=== PATIENT | male | born 1985 | race Caucasian/White ===

== ENCOUNTER 2019-05-17 06:54 | Emergency (ER) | payer SELFPAY ==
[2019-05-17 07:02] VITALS: BP 150/98; PULSE 93; RESP 18; TEMP 36.7; O2SAT 100; BMI 22.4
--- NOTE | 2019-05-17 07:07 | ED_ITS ---
Entered by Connor Kwon, acting as scribe for May 17, 2019 06:54 HPI - Dental/Oral General: Chief complaint: Dental/Oral Stated complaint: oral pain Time Seen by Provider: 05/17/19 07:01 History of Present Illness: HPI Narrative: 34 yo male presents with dental pain. Pt states that he woke up with a swollen jaw and pain. Patient has been using [id number] dental wax as to pack it he has some swelling on the left side of his jaw. No fever no nausea vomiting or diarrhea. No difficulty swallowing or speaking no difficulty with breathing Associated symptoms: Denies fever(s) Review of Systems Const: Denies: fever, chills, body aches, fatigue, malaise or night sweats Eyes: Denies: change in vision or blurry vision ENMT: Reports: oral sores/lesions and dental pain; Denies: throat pain, nasal discharge or nasal congestion Card: Denies: chest pain, palpitations, irregular heart rhythm, edema, syncope, shortness of breath on exertion, shortness of breath when lying down or leg pain with exertion Resp: Denies: shortness of breath, productive cough, non-productive cough or wheezing GI: Denies: abdominal pain, nausea, vomiting, vomiting blood, coffee grounds in vomit, difficulty swallowing, heartburn/indigestion, diarrhea, constipation, cramping, blood in stool or black tarry stool : Denies: flank pain, difficulty urinating, painful urination, urinary frequency, urinary urgency, urinary incontinence or blood in urine Musc: Denies: neck pain, back pain, extremity pain, extremity swelling, joint pain or joint swelling Skin/Breast: Denies: rash, itching or redness Neuro: Denies: headache, numbness in extremities, weakness in extremities, changes in sensation, lack of coordination, difficulty walking, frequent falls, dizziness, vertigo or confusion Psych: Denies: anxiety, depression, loss of interest, visual hallucinations, auditory hallucinations, suicidal ideation or homicidal ideation Endo: Denies: excessive urination, excessive thirst, tired all the time or cold intolerance Levar/Lymph: Denies: easy bruising, easy bleeding, petechiae, enlarged lymph nodes or tender lymph nodes PFS ED PFSH: Medical History (Updated 05/17/19 @ 07:15 by Kevin Steward DO) Anxiety reaction Depression Gastroesophageal reflux Seizure Social History Smoking and tobacco status: current every day smoker Physical Exam Const: COMMON NORMALS: average body habitus, oriented x3 and alert GENERAL APPEARANCE: cooperative, comfortable, well kempt and well developed NUTRITIO NAL APPEARANCE: obese ORIENTATION/CONSCIOUSNESS: Yes awake, Yes oriented to person and Yes oriented to place HENMT: COMMON NORMALS: normocephalic, head/scalp atraumatic, EAC's normal, TM's normal bilaterally, external nose normal, moist oral mucous membranes and oropharynx normal HEAD & SCALP: normocephalic and atraumatic NOSE: external nose normal EXTERNAL AUDITORY CANAL: EAC's normal TYMPANIC MEMBRANE: TM's normal bilaterally MOUTH: oral and palatal mucosa normal, lip normal and tongue normal THROAT: tonsils normal OTHER: Posterior mandibular molar is eroded there is wax in the cavity pit there is moderate swelling that is tender to touch along the mandible in that same region there is no evidence of submandibular swelling fullness induration no cervical lymphadenopathy noted Eye: COMMON NORMALS: PERRL, EOMs intact bilaterally, conjunctivae normal and no scleral icterus CONJUNCTIVA: Yes conjunctivae normal PUPIL: Yes PERRL Neck/C-Spine: COMMON NORMALS: full ROM, no lymphadenopathy, supple, no meni ngeal signs and thyroid normal THYROID: thyroid normal and asymmetrical Lymph: LYMPHATIC: no lymphadenopathy noted Resp: COMMON NORMALS: normal respiratory effort, no retractions, no use of accessory muscles and clear to auscultation bilaterally AUSCULTATION: clear to auscultation bilaterally Cardio: COMMON NORMALS: regular rate and regular rhythm RATE: regular rate RHYTHM: regular rhythm HEART SOUNDS: no murmurs GI: COMMON NORMALS: normal to inspection, nondistended, normoactive bowel sounds, soft to palpation and no hepatosplenomegaly PALPATION: Yes soft and Yes no hepatosplenomegaly : COMMON NORMALS: Yes no CVA tenderness BLADDER/KIDNEY EXAM: Yes no CVA tenderness Back/Pelvis: COMMON NORMALS: no CVA tenderness LUMBAR SPINE/LOWER BACK: Yes normal to inspection Extremity: COMMON NORMALS: no clubbing, cyanosis or edema, no calf tenderness and no pedal edema Neuro: COMMON NORMALS: oriented x3 SENSORIUM/ORIENTATION: Yes alert, Yes oriented to person and Yes oriented to place MENINGEAL SIGNS: Yes no meningeal signs Psych: APPEARANCE: Yes well kempt Skin: COMMON NORMALS: no rashes or lesions noted and skin turgor normal GENERAL SKIN EXAM: no rashes or lesions noted and turgor normal Course Vital Signs: Vital signs: Vital Signs Temperature 98.0 F 05/17/19 07:02 Pulse Rate 93 05/17/19 07:02 Respiratory Rate 16 05/17/19 07:08 Blood Pressure 150/98 05/17/19 07:02 Pulse Oximetry 100 05/17/19 07:02 MDM - Dental/Oral MDM Narrative: Medical decision making narrative: Unfortunately community is under the detention in place order and he will not be able to get into see his dentist likely in the next 2 weeks. We will put him on 10 days of Augmentin also given pain medications return to the emergency room if he has further problems strongly encouraged him to contact his dentist to see if they are able to do an emergency procedure soon. Discharge Plan Discharge Patient Disposition: Home, Self-Care Clinical Impression: Dental abscess, Dental caries Condition: Stable Prescriptions: New hydrocodone-acetaminophen 5-325 mg tablet 1 tab PO Q6H PRN (Reason: pain) Qty: 20 RF: 0 Augmentin 875-125 mg tablet 1 tab PO Q12H 10 Days Qty: 20 RF: 0 Discharge Orders: Discharge Order (Routine); Ordered 05/17/19 Ordered By: Kevin Steward Discharge Diet: Advance as tolerated Discharge Activity: Resume usual activity Patient Instructions: Dental Abscess (ED), Dental Caries (ED) Activity Restrictions/Additional Instructions: See your dentist as soon as you are able Coding Level of Care Code ED Will Call Order Clerk for g Fwd Exam Comprehensive The documentation recorded by the Doyle cramer Kialy, accurately reflects the service I personally performed and the decisions made by Nichelle lynch Curtis L, DO May 17, 2019 06:54
[2019-05-17 07:08] VITALS: RESP 16
[2019-05-17 07:18] VITALS: PULSE 74; RESP 15; O2SAT 98
== END 2019-05-17 07:19 | disposition home or self-care (01) ==
PROVIDERS: Emergency Provider Family Medicine
DX: K04.7 Periapical abscess without sinus (principal); K02.9 Dental caries, unspecified; E66.9 Obesity, unspecified; Z68.22 Body mass index [BMI] 22.0-22.9, adult; F17.200 Nicotine dependence, unspecified, uncomplicated
CPT/HCPCS: 12345; 99281; 99282